=== PATIENT | female | born 1950 | race Caucasian/White ===

== ENCOUNTER → 2018-08-24 | Outpatient (CLI) | payer OTHER ==
[~2018-08-24] MED LIST: AMARYL2 MG PO; ASPIR 8181 MG PO; DULOXETINE HCL30 MG PO; GLUCOPHAGE1000 MG PO; IBUPROFEN 800800 M1 PO; LOSARTAN POTASS50 MG PO; LOVASTAT40 PO; PERCOCET PO; SYNTHROID112 MC1 PO; TRAMADOL 50 MG50 MG PO; XARELTO10 MG PO
== END ==
LOC: M.MRI 16:54
DX: S83.282A Other tear of lateral meniscus, current injury, left knee, initial encounter (principal); M25.462 Effusion, left knee; M65.862 Other synovitis and tenosynovitis, left lower leg; X58.XXXA Exposure to other specified factors, initial encounter; Y93.89 Activity, other specified; Y92.89 Other specified places as the place of occurrence of the external cause; Y99.8 Other external cause status